=== PATIENT | female | born 1945 | race Caucasian/White ===

== ENCOUNTER 2018-10-15 10:55 | Outpatient (RCR) | payer MEDICARE, OTHER, SELFPAY ==
--- NOTE | 2018-10-15 12:39 | PT.OIE ---
Current Diagnoses Benign paroxysmal vertigo, right ear (10/15/18) Dizziness and giddiness (10/15/18) Provider Visit Care Team Role Provider Type Annie Schroeder MD Attending Provider Physician Family Provider Primary Care Provider Specialty: Family Practice Address: [address] [place] [address], [id number] Email: Physical Therapy Initial Evaluation PT-OP-A Visit Information Start: 10/15/18 12:12 Freq: Status: Active Protocol: Document 10/15/18 11:15 DCW (Rec: 10/15/18 12:38 DCW [id number]) Out-Patient Physical Therapy Visit Information Visit Information Visit Type Initial Evaluation Visit Start Time 11:15 Visit Stop Time 12:05 Total Visit Minutes 50 Visit Number 1 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 Pt reports episodes last minutes to hours, although admits that she only feels rotational vertigo for ~1 minute, but then feels lousy and off balance for the remainder of the day. Symptoms are provoked by looking and reaching up for items in stores, tipping her head back or down, or rolling in bed, especially to the right. Pt denies recent hearing changes, diplopia, dysarthria, discoordination, or decreased mentation/consciousness. Pt reports symptoms are waxing/ waning in nature. Pt denies hx of arrhythmia, head trauma, seizure, migraines, back/neck problems, CVA, panic disorders , depression, or excessive smoking or drinking. Pt does have a history of HTN, hyperlipidemia, and DM II, however they all all well controlled through medication or diet/exercise. Treatment Goals Patient/Caregiver Goals Decrease position-dependent vertigo Prior Functional Status Baseline Function- ADL's Independent Baseline Function- Mobility Independent PT-OP-C Subjective Start: 10/15/18 12:12 Freq: Status: Active Protocol: Document 10/15/18 11:15 DCW (Rec: 10/15/18 12:38 DCW [id number]) Patient Questionnaires Dizziness Handicap Inventory DHI Score 38% DHI Functional Impairment 20 to 39% Impaired (Score 20- 39) PT-OP-O Vestibular Start: 10/15/18 12:12 Freq: Status: Active Protocol: Document 10/15/18 11:15 DCW (Rec: 10/15/18 12:38 DCW [id number]) Vestibular Assessment Screening Tests Vestibular Artery Screen Negative Sharp-Iram Test Negative Auditory Tests Freedman Test Negative Rinne Test Negative Air Conduction Results Equal Visual Testing Smooth Pursuits Horizontal Negative Smooth Pursuits Vertical Negative Saccades Horizontal Negative Gaze Evoked Nystagmus With Fixation Negative Gaze Evoked Nystagmus Without Fixation Negative Heave Test Negative Thrust Head Negative Head Shake Negative Spontaneous Nystagmus Negative Positional Testing [place]-Hallpike Positive Right Negative Left Comments Vestibular Comments Complaints of dizziness and nausea with right Cecilio-Hallpike , however no noticable nystagmus, although pt did squeeze her eyes closed upon initially laying back PT-OP-Q Treatments Start: 10/15/18 12:12 Freq: Status: Active Protocol: Document 10/15/18 11:15 DCW (Rec: 10/15/18 12:38 DCW [id number]) Canalithic Repositioning BPPV Treatment Daniel Affected Canal(s) Right Posterior? PT-OP-T Assessment and Plan Start: 10/15/18 12:12 Freq: Status: Active Protocol: Document 10/15/18 11:15 DCW (Rec: 10/15/18 12:38 DCW [id number]) Physical Therapy Assessment Rehab Potential Rehabilitation Potential Excellent Evaluation Complexity Number of Personal Factors/Comorbidities 1-2 Number of Body Systems Impaired 1-2 Clinical Presentation at Evaluation Unstable Impairments Impairments Balance Vestibular Goals Three Impairment Positive R [place]-Hallpike Short Term Goal (STG) Negative Cecilio-Hallpike bilaterally STG Duration 10/29/18 Two Impairment DHI = 38% disability Short Term Goal (STG) Pt to score at <15% disability on DHI STG Duration 10/29/18 One Impairment Pt unable to roll over in bed Short Term Goal (STG) Pt to experience no vertigo in bed in any position for one consecutive week STG Duration 10/29/18 Assessment Summary Assessment During right [place]-Hallpike test , pt complained of vertigo and nausea lasting approximately 10 seconds, however no noticeable nystagmus, although pt did squeeze her eyes closed upon initially laying back. This may be consistent with diagnosis of right-sided posterior canal BPPV, canalithiasis-type, even without nystagmus, especially due to her long-standing history, she may be able to repress her nystagmus. Pt was treated with a right-sided Daniel maneuver. Pt complained of symptoms in the first and third position, which is normally indicative of a successful treatment. Pt was educated on BPPV, expectations for treatment, possible recurrence, and post-Daniel restrictions. Pt to return in ~1 week for a follow-up appointment, and intermittently afterward as indicated for treatment of BPPV. Physical Therapy Plan Frequency and Duration Frequency of Treatment 1x/Week Duration of Treatment 6 weeks Plan of Care Start Date 10/15/18 Plan of Care End Date 12/31/18 Therapeutic Interventions Therapeutic Interventions Balance Training Canalithic Repositioning Coordination Training Next Visit Focus/Plan Next Note Type Treatment Note Next Visit Plan Positional Retesting, CRM as needed
--- NOTE | 2018-10-15 12:40 | PT.OPPOC ---
Current Diagnoses Benign paroxysmal vertigo, right ear (10/15/18) Dizziness and giddiness (10/15/18) Provider Visit Care Team Role Provider Type Annie Schroeder MD Attending Provider Physician Family Provider Primary Care Provider Specialty: Family Practice Address: [address] [place] [address], [facility] Email: Plan Of Care PT-OP-T Assessment and Plan Start: 10/15/18 12:12 Freq: Status: Active Protocol: Document 10/15/18 11:15 DCW (Rec: 10/15/18 12:38 DCW [id number]) Physical Therapy Assessment Rehab Potential Rehabilitation Potential Excellent Evaluation Complexity Number of Personal Factors/Comorbidities 1-2 Number of Body Systems Impaired 1-2 Clinical Presentation at Evaluation Unstable Impairments Impairments Balance Vestibular Goals Three Impairment Positive R [place]-Hallpike Short Term Goal (STG) Negative [place]-Hallpike bilaterally STG Duration 10/29/18 Two Impairment DHI = 38% disability Short Term Goal (STG) Pt to score at <15% disability on DHI STG Duration 10/29/18 One Impairment Pt unable to roll over in bed Short Term Goal (STG) Pt to experience no vertigo in bed in any position for one consecutive week STG Duration 10/29/18 Assessment Summary Assessment During right Cecilio-Hallpike test , pt complained of vertigo and nausea lasting approximately 10 seconds, however no noticable nystagmus, although pt did squeeze her eyes closed upon initially laying back. This may be consistent with diagnosis of right-sided posterior canal BPPV, canalithiasis-type, even without nystagmus, especially due to her long-standing history, she may be able to repress her nystagmus. Pt was treated with a right-sided Daniel maneuver. Pt complained of symptoms in the first and third position, which is normally indicative of a successful treatment. Pt was educated on BPPV, expectations for treatment, possible recurrence, and post-Daniel restrictions. Pt to return in ~1 week for a follow-up appointment, and intermittently afterward as indicated for treatment of BPPV. Physical Therapy Plan Frequency and Duration Frequency of Treatment 1x/Week Duration of Treatment 6 weeks Plan of Care Start Date 10/15/18 Plan of Care End Date 12/31/18 Therapeutic Interventions Therapeutic Interventions Balance Training Canalithic Repositioning Coordination Training Next Visit Focus/Plan Next Note Type Treatment Note Next Visit Plan Positional Retesting, CRM as needed Plan of Care Dates Plan of Care Start Date 10/15/18 Plan of Care End Date 12/31/18 Please Sign and Return: I have reviewed this Plan of Care and certify that the skilled therapy services above are required to meet the patient?s needs. Physician Signature Date Printed Name and Credentials Clinical Instructor Signature Printed Name and Credentials
--- NOTE | 2018-12-28 12:14 | PT.OPDS ---
Current Diagnoses Benign paroxysmal vertigo, right ear (10/15/18) Dizziness and giddiness (10/15/18) Provider Visit Care Team Role Provider Type Annie Schroeder MD Attending Provider Physician Family Provider Primary Care Provider Specialty: Family Practice Address: [address] [place] [address], [facility] Email: Visit Number Visit Number 1 Discharge Summary PT-OP-B Current Condition Start: 10/15/18 12:12 Freq: Status: Active Protocol: Document 10/15/18 11:15 DCW (Rec: 10/15/18 12:38 DCW [id number]) Current Condition History of Current Condition Onset Date s/p 18 years Current Complaints position-dependent vertigo with constant low-level imbalance History of Current Condition Pt is a 73 year old female complaining of an 18 year history of motion-induced vertigo with a constant low- level sensation of imbalance. Pt reports episodes last minutes to hours, although admits that she only feels rotational vertigo for ~1 minute, but then feels lousy and off balance for the remainder of the day. Symptoms are provoked by looking and reaching up for items in stores, tipping her head back or down, or rolling in bed, especially to the right. Pt denies recent hearing changes, diplopia, dysarthria, discoordination, or decreased mentation/consciousness. Pt reports symptoms are waxing/ waning in nature. Pt denies hx of arrhythmia, head trauma, seizure, migraines, back/neck problems, CVA, panic disorders , depression, or excessive smoking or drinking. Pt does have a history of HTN, hyperlipidemia, and DM II, however they all all well controlled through medication or diet/exercise. Treatment Goals Patient/Caregiver Goals Decrease position-dependent vertigo Prior Functional Status Baseline Function- ADL's Independent Baseline Function- Mobility Independent PT-OP-C Subjective Start: 10/15/18 12:12 Freq: Status: Active Protocol: Document 10/15/18 11:15 DCW (Rec: 10/15/18 12:38 DCW [id number]) Patient Questionnaires Dizziness Handicap Inventory DHI Score 38% DHI Functional Impairment 20 to 39% Impaired (Score 20- 39) PT-OP-O Vestibular Start: 10/15/18 12:12 Freq: Status: Active Protocol: Document 10/15/18 11:15 DCW (Rec: 10/15/18 12:38 DCW [id number]) Vestibular Assessment Screening Tests Vestibular Artery Screen Negative Sharp-Iram Test Negative Auditory Tests Freedman Test Negative Rinne Test Negative Air Conduction Results Equal Visual Testing Smooth Pursuits Horizontal Negative Smooth Pursuits Vertical Negative Saccades Horizontal Negative Gaze Evoked Nystagmus With Fixation Negative Gaze Evoked Nystagmus Without Fixation Negative Heave Test Negative Thrust Head Negative Head Shake Negative Spontaneous Nystagmus Negative Positional Testing Cecilio-Hallpike Positive Right Negative Left Comments Vestibular Comments Complaints of dizziness and nausea with right [place]-Hallpike , however no noticeable nystagmus, although pt did squeeze her eyes closed upon initially laying back PT-OP-T Assessment and Plan Start: 10/15/18 12:12 Freq: Status: Active Protocol: Document 12/28/18 12:11 DCW (Rec: 12/28/18 12:14 DCW [id number]) Physical Therapy Assessment Assessment Summary Assessment Pt was instructed to schedule a follow-up visit following her initial evaluation, however canceled twice due to conflicts and never resecheduled. Pt has now not been seen in more than two months, and will be discharged from skilled PT at this time. Physical Therapy Plan Discharge Physical Therapy Discharge Reasons No Longer Attending PT Next Visit Focus/Plan Next Note Type Discharge Summary
== END 2019-01-19 16:34 | disposition home or self-care (01) ==
LOC: PHYS 10:55
PROVIDERS: Family Provider Family Medicine; PCP Family Medicine; Visit Provider Family Medicine
DX: R42 Dizziness and giddiness (principal)
CPT/HCPCS: 95992; 97161

== ENCOUNTER → 2020-04-20 13:23 | Outpatient (CLI) | payer MEDICARE, OTHER, SELFPAY ==
--- NOTE | 2020-04-20 | DI.MG.S_ITS ---
BILATERAL DIGITAL SCREENING MAMMOGRAM 3D/2D WITH CAD: 04/20/2020 CLINICAL: Routine screening. Comparison is made to exams dated: 03/18/2017 mammogram, 07/20/2014 mammogram, and 01/17/2014 mammogram - [facility]. There are scattered fibroglandular elements in both breasts. Current study was also evaluated with a Computer Aided Detection (CAD) system. No significant masses, calcifications, or other findings are seen in either breast. There has been no significant interval change. IMPRESSION: NEGATIVE There is no mammographic evidence of malignancy. A 1 year screening mammogram is recommended. This exam was interpreted at Station ID: [id number]. NOTE: For mammograms, a report in lay terms will be sent to the patient. Approximately 15% of breast malignancies will not be visualized mammographically. In the management of a palpable breast mass, a negative mammogram must not discourage biopsy of a clinically suspicious lesion. Electronically Signed By: Charlie camejo/irving:04/20/2020 17:22:50 letter sent: Normal Exam ACR BI-RADS Category 1: Negative 3341F
== END ==
PROVIDERS: Family Provider Family Medicine; PCP Family Medicine; Referring Provider Family Medicine; Visit Provider Family Medicine
DX: Z12.31 Encounter for screening mammogram for malignant neoplasm of breast (principal)
CPT/HCPCS: 77063; 77067

== ENCOUNTER → 2021-01-09 14:54 | Outpatient (CLI) | payer MEDICARE, OTHER, SELFPAY | PROVIDERS: Family Provider Family Medicine; PCP Family Medicine; Referring Provider Family Medicine; Visit Provider Family Medicine | DX: M85.851 Other specified disorders of bone density and structure, right thigh (principal); Z78.0 Asymptomatic menopausal state; E11.9 Type 2 diabetes mellitus without complications | CPT/HCPCS: 77080 ==

== ENCOUNTER → 2021-08-05 14:38 | Outpatient (CLI) | payer MEDICARE, OTHER, SELFPAY ==
--- NOTE | 2021-08-05 | DI.MG.S_ITS ---
BILATERAL DIGITAL SCREENING MAMMOGRAM 3D/2D WITH CAD: 08/05/2021 CLINICAL: Routine screening. Comparison is made to exams dated: 04/20/2020 mammogram, 03/18/2017 mammogram, and 01/09/2014 mammogram - [facility]. There are scattered fibroglandular elements in both breasts. Current study was also evaluated with a Computer Aided Detection (CAD) system. There is a stable benign mass in the right breast. No significant masses, calcifications, or other findings are seen in either breast. There has been no significant interval change. IMPRESSION: BENIGN There is no mammographic evidence of malignancy. A 1 year screening mammogram is recommended. This exam was interpreted at Station ID: [id number]. NOTE: For mammograms, a report in lay terms will be sent to the patient. Approximately 15% of breast malignancies will not be visualized mammographically. In the management of a palpable breast mass, a negative mammogram must not discourage biopsy of a clinically suspicious lesion. Electronically Signed By: Terrell griffith/irving:08/05/2021 15:33:46 letter sent: Normal Exam ACR BI-RADS Category 2: Benign Finding(s) 3342F
== END ==
PROVIDERS: Family Provider Family Medicine; PCP Family Medicine; Referring Provider Family Medicine; Visit Provider Family Medicine
DX: Z12.31 Encounter for screening mammogram for malignant neoplasm of breast (principal)
CPT/HCPCS: 77063; 77067

== ENCOUNTER → 2022-11-18 14:40 | Outpatient (CLI) | payer OTHER, SELFPAY ==
--- NOTE | 2022-11-18 | DI.RAD.S_ITS ---
Bone Density Report Name: ALESSIO LOUIS Age: 77 Sex: Female Ethnicity: White Date of : 1945 Indication: UNAPPROVED postmenopausal; screening for osteoporosis; Referring Provider: YELENA CHAMBERS Study: Bone densitometry was performed. Exam Date: November 18, 2022 Accession number: [id number] Bone Density: Region BMD T-score Z-score Classification AP Spine(L2, L3, L4) 1.241 1.5 4.0 Normal Femoral Neck (Left) 0.755 -0.8 1.3 Normal Total Hip (Left) 1.001 0.5 2.3 Normal Femoral Neck (Right) 0.706 -1.3 0.9 Osteopenia Total Hip (Right) 0.975 0.3 2.1 Normal Total Hip Mean 0.988 0.4 2.2 Normal World Health Organization criteria for BMD impression classify patients as: Normal (T-score at or above -1.0), Osteopenia (T-score between -1.0 and -2.5), or Osteoporosis (T-score at or below -2.5). 10-year Fracture Risk(1): Major Osteoporotic Fracture 11% Hip Fracture 2.0% Reported Risk Factors: [place] (), Neck BMD=0.706, BMI=32.3 (1) FRAX(R) Version 3.08. Fracture probability calculated for an untreated patient. Fracture probability may be lower if the patient has received treatment. Previous Exams: -- Region Exam Age BMD T-score BMD Change BMD Change Date g/cm2 vs Baseline vs Previous -- AP Spine (L2-L4) 11/18/2022 77 1.241 1.5 -0.042 (-3.3%)# -0.042 (-3.3%)# 01/09/2021 75 1.282 1.8 Total Hip(Left) 11/18/2022 77 1.001 0.5 0.006 (0.6%)# 0.006 (0.6%)# 01/09/2021 75 0.995 0.4 Total Hip(Right) 11/18/2022 77 0.975 0.3 -0.036 (-3.6%)# -0.036 (-3.6%)# 01/09/2021 75 1.011 0.6 -- *Denotes significance at 95% confidence level, LSC for AP Spine = 0.022 g/cm2, LSC for Total Hip = 0.027 g/cm2 # Denotes dissimilar scan types or analysis methods Impression: UNAPPROVED The patient has low bone mass, based on the Right Femoral Neck T-score. The patient has an estimated ten-year risk of hip fracture of 2% and an estimated ten-year risk of major fracture of 11%, based on the WHO FRAX algorithm. No significant bone loss was observed. Discussion: UNAPPROVED BONE DENSITY IS LOW AT ONE OR MORE SKELETAL SITES. This patient's lowest T-score is low at one or more skeletal sites. It meets the World Health Organization's (WHO) criteria for low bone mass (T-score between -1.0 and -2.5). The patient's 10-year risk of fracture as calculated by FRAX is less than the threshold where pharmacological therapy is recommended by the National Osteoporosis Foundation (NOF). However, all treatment decisions require clinical judgment and consideration of individual patient factors, including patient preferences, comorbidities, previous drug use, risk factors not captured in the FRAX model (e.g., frailty, falls, vitamin D deficiency, increased bone turnover, interval significant decline in bone density) and possible under or overestimation of fracture risk by FRAX. The patient should follow a healthful lifestyle (good nutrition with adequate calcium and vitamin D, and appropriate weight-bearing exercise). Follow-Up: UNAPPROVED Consider repeating this study in 2 to 3 years to reassess this patient's status, or sooner if there is some new clinical indication. Reported by: PRADEEP BENAVIDES M.D on 11/18/2022 2:20:00 PM.
== END ==
PROVIDERS: Family Provider Family Medicine; PCP Family Medicine; Referring Provider Family Medicine; Visit Provider Family Medicine
DX: Z78.0 Asymptomatic menopausal state (principal); Z13.820 Encounter for screening for osteoporosis; M85.851 Other specified disorders of bone density and structure, right thigh
CPT/HCPCS: 77080

== ENCOUNTER → 2023-04-14 16:23 | Outpatient (CLI) | payer OTHER, SELFPAY ==
--- NOTE | 2023-04-14 | DI.RAD.S_ITS ---
PROCEDURE: XR LUMBAR SPINE 2-3V INDICATIONS: Sciatica TECHNIQUE: 3 views of the lumbar spine were acquired. COMPARISON: None. FINDINGS: Bones: 5 [id number] vertebrae are present. There is 4 mm grade 1 retrolisthesis at L2-3, 3 mm grade 1 anterolisthesis at L4-5, and 4 mm grade 1 anterolisthesis at L5-S1. No vertebral body compression fractures. No suspicious bony lesions. Multilevel disc space narrowing degenerative endplate changes and multilevel facet hypertrophy are seen. Soft tissues: Overlying bowel gas pattern is normal. No suspicious soft tissue calcifications. Left pelvis adnexal clips are present. IMPRESSION: Moderate multilevel spondylosis and degenerative spondylolistheses. Approved by: Scot Mcintosh M.D. on 04/15/2023 at 11:39
--- NOTE | 2023-04-14 | DI.RAD.S_ITS ---
PROCEDURE: XR CERVICAL SPINE 2V OR 3V INDICATIONS: Neck pain TECHNIQUE: Three views of the cervical spine were acquired. COMPARISON: None. FINDINGS: Bones: No acute fractures or dislocations to the C7 level. The lateral masses of C1 appear intact on the odontoid view. No suspicious bony lesions. Multilevel disc space narrowing degenerative endplate changes are seen. There is multilevel uncovertebral joint and facet hypertrophy. 2 mm grade 1 anterolisthesis is seen at C4-5. Soft tissues: No prevertebral soft tissue swelling. IMPRESSION: Moderate multilevel spondylosis and degenerative spondylolisthesis. Approved by: Scot Mcintosh M.D. on 04/15/2023 at 11:37
== END ==
PROVIDERS: Family Provider Family Medicine; PCP Family Medicine; Referring Provider Family Medicine; Visit Provider Family Medicine
DX: M47.812 Spondylosis without myelopathy or radiculopathy, cervical region (principal); M43.12 Spondylolisthesis, cervical region; M47.26 Other spondylosis with radiculopathy, lumbar region; M43.16 Spondylolisthesis, lumbar region; M43.17 Spondylolisthesis, lumbosacral region; R42 Dizziness and giddiness; M54.2 Cervicalgia
CPT/HCPCS: 72040; 72100

== ENCOUNTER → 2023-05-21 07:55 | Outpatient (CLI) | payer OTHER, SELFPAY ==
--- NOTE | 2023-05-21 | DI.ECHO.S_ITS ---
[facility] +---------+ : : [address] [place] [address] : : : : [id number] : : : : Phone: [phone]---------+ Echocardiogram Report + + :Name: ALESSIO LOUIS Study Date: 05/21/2023 Height: 59 in : :[facility] ReadingLocation: Weight: 157 lb : : Gender: Female BSA: 1.7 m2 : :: 1945 Age: 78 yrs BP: 171/93 mmHg: :Reason For Study: Cardiac Murmur : :Ordering Physician: REYES, : :YELENA Performed By: Iris Lira : :Referring: YELENA CHAMBERS : + + Interpretation Summary The left ventricle is normal in size. Left ventricular systolic function appears normal without focal wall motion abnormalities. The ejection fraction is estimated to be 60-65%. The right ventricle is normal in size and function. Pulmonary artery pressures cannot be estimated because of the lack of a measurable TR jet velocity. The left atrial size is normal. There is no significant valvular heart disease. The aortic root is normal size. Procedure: A two-dimensional transthoracic echocardiogram with color flow and Doppler was performed. The study quality was technically adequate. There is no prior echocardiogram noted for this patient. The patient was in normal sinus rhythm during the exam. The patient had occasional PVCs during the exam. Left Ventricle: The left ventricle is normal in size. Left ventricular wall thickness is mildly increased. Left ventricular systolic function appears normal without focal wall motion abnormalities. The ejection fraction is estimated to be 60-65%. Diastolic function could not be accurately assessed due to contradictory data. Right Ventricle: The right ventricle is normal in size and function. Atria: The left atrial size is normal. Right atrial size is normal. There is no Doppler evidence for an interatrial shunt. Mitral Valve: The mitral valve leaflets appear borderline thickened, but open well. There is mild mitral annular calcification. There is no mitral valve stenosis. There is trace mitral regurgitation. Aortic Valve: The aortic valve is trileaflet. There is mild aortic valve sclerosis. There is no aortic valve stenosis. There is no aortic regurgitation. Tricuspid Valve: The tricuspid valve is normal. There is no tricuspid stenosis. There is trace tricuspid regurgitation. Pulmonary artery pressures cannot be estimated because of the lack of a measurable TR jet velocity. Pulmonic Valve: The pulmonic valve leaflets are thin and pliable; valve motion is normal. There is no pulmonic valvular stenosis. There is trace pulmonic regurgitation. There is no significant valvular heart disease. Great Vessels: The aortic root is normal size. The ascending aorta is normal in size. The pulmonary artery is normal size. The IVC is of normal diameter and collapses greater than 50% with a sniff. This suggests a low right atrial pressure of 3 mm Hg. Pericardium/ Pleura There is no pericardial effusion. There is no pleural effusion. MMode/2D Measurements & Calculations LVIDd: 3.7 cm LVOT diam: 1.7 cm LVIDs: 2.1 cm Ao root diam: 2.8 cm FS: 43.2 % asc Aorta Diam: 3.1 cm IVSd: 1.2 cm LVPWd: 0.80 cm LV sarkar. diameter/BSA (cm/m^2): 2.2 LV sys. diameter/BSA (cm/m^2): 1.3 LA A2 area: 11.8 cm2 RA long axis: 5.1 cm LA A4 area: 12.0 cm2 RA area: 13.1 cm2 LA length (vol): 4.9 cm RA vol: 28.5 ml LA vol: 24.7 ml RA : 17.1 ml/m2 LA vol index: 14.8 ml/m2 RVD1 (basal): 3.2 cm LVLs ap4: 5.5 cm LVLd ap2: 6.2 cm TAPSE_phl: 2.4 cm LVLs ap2: 5.5 cm Doppler Measurements & Calculations MV E max enzo: 89.8 cm/sec PA V2 max: 140.0 cm/sec MV A max enzo: 115.0 cm/sec PA V2 mean: 83.5 cm/sec MV E/A: 0.78 PA mean P.0 mmHg Med Peak E' Enzo: 4.8 cm/sec PA pr(Accel): 49.3 mmHg E/E' med: 18.9 Lat Peak E' Enzo: 4.0 cm/sec E/E' lat: 22.6 E/e' average: 20.7 MV dec time: 0.22 sec MV V2 mean: 72.3 cm/sec MV P1/2t-pr_phl: 67.0 msec MV mean P.4 mmHg MV V2 VTI: 32.5 cm Reading Physician:06:22 PM
== END ==
PROVIDERS: Family Provider Family Medicine; PCP Family Medicine; Referring Provider Family Medicine; Visit Provider Family Medicine
DX: I34.81 Nonrheumatic mitral (valve) annulus calcification (principal); I35.8 Other nonrheumatic aortic valve disorders; R01.1 Cardiac murmur, unspecified
CPT/HCPCS: 93306

== ENCOUNTER 2024-08-01 14:30 | Outpatient (RCR) | payer OTHER, SELFPAY ==
--- NOTE | 2024-07-22 16:45 | PT.OIE ---
Current Diagnoses Unsteadiness on feet (07/22/24) Dizziness and giddiness (07/22/24) Visit Care Team Role Provider Type Annie Schroeder MD Attending Provider Physician Family Provider Primary Care Provider Referring Provider Specialty: [facility] Address: [address] [place] [address], [facility] [place], [address] Email: [email or web address] Physical Therapy Initial Evaluation PT-OP-A Visit Information Start: 07/22/24 16:12 Freq: Status: Active Protocol: Document 07/22/24 14:30 DCW (Rec: 07/22/24 16:25 DCW [id number]) Out-Patient Physical Therapy Visit Information Visit Information Visit Type Initial Evaluation Visit Start Time 14:30 Visit Stop Time 15:15 Visit Number 1 Number of RETAIL SPECIAL EVENT ASSOCIATE Visits 0 Evaluation Information Evaluation Date 07/22/24 PT-OP-B Current Condition Start: 07/22/24 16:12 Freq: Status: Active Protocol: Document 07/22/24 14:30 DCW (Rec: 07/22/24 16:25 DCW [id number]) Current Condition History of Current Condition Onset Date 20 year history Current Complaints Unsteadiness, decreased activity tolerance, vestibular migraine History of Current Condition Pt is a 79 year old female presenting with a twenty year history of constant dizziness. Dizziness is much worse when up moving around, however is constantly present as a low- level of imbalance. Pt reports that worse periods of symptoms last from minutes to hours, and then she feels poor the remainder of the day. Pt was previously seen in the clinic five years ago with the same complaints, but responded so poorly to vestibular testing, she did not return for any follow-up appointments. Pt reports that there has been a change since that occurred, and that in January of 2023, she had the worst episode she has had since it began in 2003, recovery took days, but I never actually fully recovered. Then, in September 2023, she had an episode where she became very sweaty, with palpitations, nausea, and visual aura, and thought she was having an [place]. She was instead diagnosed with a vestibular migraine. She has since been seen by ENT and Neurology. Neuro specifically has been incredibly helpful, recommending she begin taking Riboflavin and Magnesium, as well as drinking johan. This occurred in April of this year, and she has felt better for the past four months than she has for years. Pt is now hoping to participate in PT, with the hopes of improving her balance and activity tolerance after being at a low functional level for so long due to poor balance and fear of increasing symptoms. PT-OP-C Subjective Start: 07/22/24 16:12 Freq: Status: Active Protocol: Document 07/22/24 14:30 DCW (Rec: 07/22/24 16:25 DCW [id number]) OP-PT Subjective Patient Comments Patient Comments Even if I don't get better than I am right now, I'm so much better than I was before, so I'm already pretty thrilled. Patient Reported Progress Improving PT-OP-D Balance Start: 07/22/24 16:12 Freq: Status: Active Protocol: Document 07/22/24 14:30 DCW (Rec: 07/22/24 16:30 DCW [id number]) Balance Tests Lawson Balance Test Lawson Balance Test Score 51/56 Lawson Impairment Rating 1 to 19% Impaired (Score 45-55 ) Lawson Balance Assessment Evaluation Sitting to Standing Ability Independent w/out Hands Unsupported Stance Safely- 2 minutes Sitting Unsupported, Feet on Floor Safely- 2 minutes Standing to Sitting Ability Safely, Minimal Hand Use Transfer Ability Safely, Minimal Hand Use Unsupported Stance- Eyes Closed Safely, 10 seconds Unsupported Stance- Eyes Open Independent, 1 minute Reaching Forward Standing Safely, 5 inches Pick- Up Object From Floor Independent/Safe Look Behind Shoulder - Standing Shifts Weight Well Turning 360 Degrees Turns Bilateral, < 4 secs Unsupported Stance, Alternating Feet on (I)- 8 Steps in 20 secs Stair Unsupported Tandem Stance Holds Tandem- 30 seconds Unilateral Leg Stance Lifts Leg/Unable to Hold Total Score Lawson Total Score (out of 56 points) 51 Lawson Impairment Rating 1 to 19% Impaired (Score 45-55 ) PT-OP-E Functional Tests Start: 07/22/24 16:12 Freq: Status: Active Protocol: Document 07/22/24 14:30 DCW (Rec: 07/22/24 16:30 DCW [id number]) Functional Tests Dynamic Gait Index (DGI) Score 18/24 DGI Impairment Rating 20 to <40% Impaired (Score 15- 19) PT-OP-Q Treatments Start: 07/22/24 16:12 Freq: Status: Active Protocol: Document 07/22/24 14:30 DCW (Rec: 07/22/24 16:30 DCW [id number]) Neuro Re-Education Treatment Vestibular Rehabilitation X1 Viewing Details Static target, head turns Distance From Target Arm's length Speed as tolerated Position seated VOR Retraining Details VOR Cancellation - Head and target moving together Distance From Target Arm's length Speed as tolerated Position seated PT-OP-T Assessment and Plan Start: 07/22/24 16:12 Freq: Status: Active Protocol: Document 07/22/24 14:30 DCW (Rec: 07/22/24 16:45 DCW [id number]) Physical Therapy Assessment Rehab Potential Rehabilitation Potential Fair Evaluation Complexity Number of Personal Factors/Comorbidities 3 or More Number of Body Systems Impaired 4 or More Clinical Presentation at Evaluation Unstable Impairments Impairments Activity Tolerance,Balance, Functional Activities, Functional Mobility,Vestibular ,Visual Motor Goals Three Impairment Pt moves en bloc with all turns and direction changes Chlorinator Goal (LTG) Pt to demonstrate ability to ambulate without path deviation while performing head turns over a 60 foot distance LTG Duration 10/20/24 Two Impairment Pt DGI score (18) suggests an increased risk of falls Chlorinator Goal (LTG) Pt to exhibit a decrease in falls risk by improving DGI score by at least three points to 21/24 LTG Duration 10/20/24 One Impairment Pt does not have an appropriate home exercise program Short Term Goal (STG) Pt to be independent and compliant with an appropriate HEP STG Duration 08/21/24 Assessment Summary Assessment Pt presents with signs and symptoms consistent with her referring diagnosis. 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 Pt reports significant improvement in symptoms after beginning supplements from neurologist. At this time, pt' s dynamic balance indicates an increased falls risk, with a DGI score of 18/24. Pt tends to perform any turn en block to decrease vestibular symptoms. Pt will likely benefit from skilled therapeutic intervention focusing on vestibular challenges, balance training, dynamic gait, and decreasing falls risk. Started with VOR cancellation exercise and X1 viewing for HEP, pt required very slow movements with short duration, but felt relatively okay when performing. Physical Therapy Plan Frequency and Duration Frequency of Treatment 1-2x/week Plan of Care Start Date 07/22/24 Plan of Care End Date 10/20/24 Next Visit Focus/Plan Next Note Type Treatment Note Next Visit Plan X2, Saccades, balance training
--- NOTE | 2024-07-22 16:46 | PT.OPPOC ---
Physical, Occupational & Speech Therapy At [facility] Current Diagnoses Unsteadiness on feet (07/22/24) Dizziness and giddiness (07/22/24) Visit Care Team Role Provider Type Annie Schroeder MD Attending Provider Physician Family Provider Primary Care Provider Referring Provider Specialty: Family Practice Address: [address] [place] [address], [facility] [place], [facility] Email: [email or web address] Plan Of Care PT-OP-B Current Condition Start: 07/22/24 16:12 Freq: Status: Active Protocol: Document 07/22/24 14:30 DCW (Rec: 07/22/24 16:25 DCW [id number]) Current Condition History of Current Condition Onset Date 20 year history Current Complaints Unsteadiness, decreased activity tolerance, vestibular migraine History of Current Condition Pt is a 79 year old female presenting with a twenty year history of constant dizziness. Dizziness is much worse when up moving around, however is constantly present as a low- level of imbalance. Pt reports that worse periods of symptoms last from minutes to hours, and then she feels poor the remainder of the day. Pt was previously seen in the clinic five years ago with the same complaints, but responded so poorly to vestibular testing, she did not return for any follow-up appointments. Pt reports that there has been a change since that occurred, and that in January of 2023, she had the worst episode she has had since it began in 2003, recovery took days, but I never actually fully recovered. Then, in September 2023, she had an episode where she became very sweaty, with palpitations, nausea, and visual aura, and thought she was having an [place]. She was instead diagnosed with a vestibular migraine. She has since been seen by ENT and Neurology. Neuro specifically has been incredibly helpful, recommending she begin taking Riboflavin and Magnesium, as well as drinking johan. This occurred in April of this year, and she has felt better for the past four months than she has for years. Pt is now hoping to participate in PT, with the hopes of improving her balance and activity tolerance after being at a low functional level for so long due to poor balance and fear of increasing symptoms. PT-OP-T Assessment and Plan Start: 07/22/24 16:12 Freq: Status: Active Protocol: Document 07/22/24 14:30 DCW (Rec: 07/22/24 16:45 DCW [id number]) Physical Therapy Assessment Rehab Potential Rehabilitation Potential Fair Evaluation Complexity Number of Personal Factors/Comorbidities 3 or More Number of Body Systems Impaired 4 or More Clinical Presentation at Evaluation Unstable Impairments Impairments Activity Tolerance,Balance, Functional Activities, Functional Mobility,Vestibular ,Visual Motor Goals Three Impairment Pt moves en bloc with all turns and direction changes Carton Catcher Goal (LTG) Pt to demonstrate ability to ambulate without path deviation while performing head turns over a 60 foot distance LTG Duration 10/20/24 Two Impairment Pt DGI score () suggests an increased risk of falls Carton Catcher Goal (LTG) Pt to exhibit a decrease in falls risk by improving DGI score by at least three points to LTG Duration 10/20/24 One Impairment Pt does not have an appropriate home exercise program Short Term Goal (STG) Pt to be independent and compliant with an appropriate HEP STG Duration 08/21/24 Assessment Summary Assessment Pt presents with signs and symptoms consistent with her referring diagnosis. 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 Pt reports significant improvement in symptoms after beginning supplements from neurologist. At this time, pt' s dynamic balance indicates an increased falls risk, with a DGI score of 18/24. Pt tends to perform any turn en block to decrease vestibular symptoms. Pt will likely benefit from skilled therapeutic intervention focusing on vestibular challenges, balance training, dynamic gait, and decreasing falls risk. Started with VOR cancellation exercise and X1 viewing for HEP, pt required very slow movements with short duration, but felt relatively okay when performing. Physical Therapy Plan Frequency and Duration Frequency of Treatment 1-2x/week Plan of Care Start Date 07/22/24 Plan of Care End Date 10/20/24 Next Visit Focus/Plan Next Note Type Treatment Note Next Visit Plan X2, Saccades, balance training Plan of Care Dates Plan of Care Start Date 07/22/24 Plan of Care End Date 10/20/24 Electronically Signed by: Parrish Coughlin, PT 07/22/24 0938 If you are in agreement with this Plan of Care, please return a signed and dated copy. I have reviewed this Plan of Care and certify that the skilled therapy services above are required to meet the patient?s needs. Physician Signature Date Printed Name and Credentials Clinical Instructor Signature Printed Name and Credentials
--- NOTE | 2024-07-25 14:59 | PT.OTN ---
Current Diagnoses Unsteadiness on feet (07/25/24) Dizziness and giddiness (07/25/24) Physical Therapy Treatment Note PT-OP-A Visit Information Start: 07/22/24 16:12 Freq: Status: Active Protocol: Document 07/25/24 14:30 DCW (Rec: 07/25/24 14:59 DCW [id number]) Out-Patient Physical Therapy Visit Information Visit Information Visit Type Treatment Note Visit Start Time 14:30 Visit Stop Time 14:57 Visit Number 2 Number of SHEET ROCK INSTALLER Visits 0 Evaluation Information Evaluation Date 07/22/24 PT-OP-B Current Condition Start: 07/22/24 16:12 Freq: Status: Active Protocol: Document 07/22/24 14:30 DCW (Rec: 07/22/24 16:25 DCW [id number]) Current Condition History of Current Condition Onset Date 20 year history Current Complaints Unsteadiness, decreased activity tolerance, vestibular migraine History of Current Condition Pt is a 79 year old female presenting with a twenty year history of constant dizziness. Dizziness is much worse when up moving around, however is constantly present as a low- level of imbalance. Pt reports that worse periods of symptoms last from minutes to hours, and then she feels poor the remainder of the day. Pt was previously seen in the clinic five years ago with the same complaints, but responded so poorly to vestibular testing, she did not return for any follow-up appointments. Pt reports that there has been a change since that occurred, and that in January of 2023, she had the worst episode she has had since it began in 2003, recovery took days, but I never actually fully recovered. Then, in September 2023, she had an episode where she became very sweaty, with palpitations, nausea, and visual aura, and thought she was having an [place]. She was instead diagnosed with a vestibular migraine. She has since been seen by ENT and Neurology. Neuro specifically has been incredibly helpful, recommending she begin taking Riboflavin and Magnesium, as well as drinking johan. This occurred in April of this year, and she has felt better for the past four months than she has for years. Pt is now hoping to participate in PT, with the hopes of improving her balance and activity tolerance after being at a low functional level for so long due to poor balance and fear of increasing symptoms. PT-OP-C Subjective Start: 07/22/24 16:12 Freq: Status: Active Protocol: Document 07/25/24 14:30 DCW (Rec: 07/25/24 14:59 DCW [id number]) OP-PT Subjective Patient Comments Patient Comments Pt reports she got a chance to practice her HEP, they're going prety well, but she is not able to tolerate 30 seconds yet. Notes her vertical X1 got a little more symptomatic this morning, but she admits she was rushing through it. PT-OP-D Balance Start: 07/22/24 16:12 Freq: Status: Active Protocol: Document 07/22/24 14:30 DCW (Rec: 07/22/24 16:30 DCW [id number]) Balance Tests Lawson Balance Test Lawson Balance Test Score 51/56 Lawson Impairment Rating 1 to 19% Impaired (Score 45-55 ) Lawson Balance Assessment Evaluation Sitting to Standing Ability Independent w/out Hands Unsupported Stance Safely- 2 minutes Sitting Unsupported, Feet on Floor Safely- 2 minutes Standing to Sitting Ability Safely, Minimal Hand Use Transfer Ability Safely, Minimal Hand Use Unsupported Stance- Eyes Closed Safely, 10 seconds Unsupported Stance- Eyes Open Independent, 1 minute Reaching Forward Standing Safely, 5 inches Pick- Up Object From Floor Independent/Safe Look Behind Shoulder - Standing Shifts Weight Well Turning 360 Degrees Turns Bilateral, < 4 secs Unsupported Stance, Alternating Feet on (I)- 8 Steps in 20 secs Stair Unsupported Tandem Stance Holds Tandem- 30 seconds Unilateral Leg Stance Lifts Leg/Unable to Hold Total Score Lawson Total Score (out of 56 points) 51 Lawson Impairment Rating 1 to 19% Impaired (Score 45-55 ) PT-OP-E Functional Tests Start: 07/22/24 16:12 Freq: Status: Active Protocol: Document 07/22/24 14:30 DCW (Rec: 07/22/24 16:30 DCW [id number]) Functional Tests Dynamic Gait Index (DGI) Score 1824 DGI Impairment Rating 20 to <40% Impaired (Score 15- 19) PT-OP-Q Treatments Start: 07/22/24 16:12 Freq: Status: Active Protocol: Document 07/25/24 14:30 DCW (Rec: 07/25/24 14:59 DCW [id number]) Neuro Re-Education Treatment Vestibular Rehabilitation Corrective Saccades Details Eyes, then head Distance From Target Arm's length Speed as tolerated Position seated X2 Viewing Details Target and head moving in opposite directions Distance From Target Arm's length Speed as tolerated Position seated X1 Viewing Details Static target, head turns Distance From Target Arm's length Speed as tolerated Position seated VOR Retraining Details VOR Cancellation - Head and target moving together Distance From Target Arm's length Speed as tolerated Position seated PT-OP-T Assessment and Plan Start: 07/22/24 16:12 Freq: Status: Active Protocol: Document 07/25/24 14:30 DCW (Rec: 07/25/24 14:59 DCW [id number]) Physical Therapy Assessment Impairments Impairments Activity Tolerance,Balance, Functional Activities, Functional Mobility,Vestibular ,Visual Motor Goals Three Impairment Pt moves en bloc with all turns and direction changes Nursing Home Goal (LTG) Pt to demonstrate ability to ambulate without path deviation while performing head turns over a 60 foot distance LTG Duration 10/20/24 Two Impairment Pt DGI score () suggests an increased risk of falls Nursing Home Goal (LTG) Pt to exhibit a decrease in falls risk by improving DGI score by at least three points to LTG Duration 10/20/24 One Impairment Pt does not have an appropriate home exercise program Short Term Goal (STG) Pt to be independent and compliant with an appropriate HEP STG Duration 08/21/24 Assessment Summary Assessment Reviewed HEP, added X2 and saccades to exercises. Pt tolerated fairly well, requires slow movements over short duration. Because pt is so sensitive to movement, shortened treatment session to not overdo activity. Recommend pt practice at home, return in one week for follow -up. Physical Therapy Plan Frequency and Duration Frequency of Treatment 1-2x/week Plan of Care Start Date 07/22/24 Plan of Care End Date 10/20/24 Next Visit Focus/Plan Next Note Type Treatment Note Next Visit Plan X2, Saccades, balance training
--- NOTE | 2024-08-01 15:07 | PT.OTN ---
Current Diagnoses Unsteadiness on feet (08/01/24) Dizziness and giddiness (08/01/24) Physical Therapy Treatment Note PT-OP-A Visit Information Start: 07/22/24 16:12 Freq: Status: Active Protocol: Document 08/01/24 14:30 DCW (Rec: 08/01/24 15:07 DCW [id number]) Out-Patient Physical Therapy Visit Information Visit Information Visit Type Treatment Note Visit Start Time 14:30 Visit Stop Time 15:02 Visit Number 3 Number of HOME AIDE Visits 0 Evaluation Information Evaluation Date 07/22/24 PT-OP-B Current Condition Start: 07/22/24 16:12 Freq: Status: Active Protocol: Document 07/22/24 14:30 DCW (Rec: 07/22/24 16:25 DCW [id number]) Current Condition History of Current Condition Onset Date 20 year history Current Complaints Unsteadiness, decreased activity tolerance, vestibular migraine History of Current Condition Pt is a 79 year old female presenting with a twenty year history of constant dizziness. Dizziness is much worse when up moving around, however is constantly present as a low- level of imbalance. Pt reports that worse periods of symptoms last from minutes to hours, and then she feels poor the remainder of the day. Pt was previously seen in the clinic five years ago with the same complaints, but responded so poorly to vestibular testing, she did not return for any follow-up appointments. Pt reports that there has been a change since that occurred, and that in January of 2023, she had the worst episode she has had since it began in 2003, recovery took days, but I never actually fully recovered. Then, in September 2023, she had an episode where she became very sweaty, with palpitations, nausea, and visual aura, and thought she was having an [place]. She was instead diagnosed with a vestibular migraine. She has since been seen by ENT and Neurology. Neuro specifically has been incredibly helpful, recommending she begin taking Riboflavin and Magnesium, as well as drinking johan. This occurred in April of this year, and she has felt better for the past four months than she has for years. Pt is now hoping to participate in PT, with the hopes of improving her balance and activity tolerance after being at a low functional level for so long due to poor balance and fear of increasing symptoms. PT-OP-C Subjective Start: 07/22/24 16:12 Freq: Status: Active Protocol: Document 08/01/24 14:30 DCW (Rec: 08/01/24 15:07 DCW [id number]) OP-PT Subjective Patient Comments Patient Comments Pt feeling pretty good, actually. Notes her HEP is going pretty well, does frequently have to recallibrate during X2 viewing. PT-OP-D Balance Start: 07/22/24 16:12 Freq: Status: Active Protocol: Document 07/22/24 14:30 DCW (Rec: 07/22/24 16:30 DCW [id number]) Balance Tests Lawson Balance Test Lawson Balance Test Score 51/56 Lawson Impairment Rating 1 to 19% Impaired (Score 45-55 ) Lawson Balance Assessment Evaluation Sitting to Standing Ability Independent w/out Hands Unsupported Stance Safely- 2 minutes Sitting Unsupported, Feet on Floor Safely- 2 minutes Standing to Sitting Ability Safely, Minimal Hand Use Transfer Ability Safely, Minimal Hand Use Unsupported Stance- Eyes Closed Safely, 10 seconds Unsupported Stance- Eyes Open Independent, 1 minute Reaching Forward Standing Safely, 5 inches Pick- Up Object From Floor Independent/Safe Look Behind Shoulder - Standing Shifts Weight Well Turning 360 Degrees Turns Bilateral, < 4 secs Unsupported Stance, Alternating Feet on (I)- 8 Steps in 20 secs Stair Unsupported Tandem Stance Holds Tandem- 30 seconds Unilateral Leg Stance Lifts Leg/Unable to Hold Total Score Lawson Total Score (out of 56 points) 51 Lawson Impairment Rating 1 to 19% Impaired (Score 45-55 ) PT-OP-E Functional Tests Start: 07/22/24 16:12 Freq: Status: Active Protocol: Document 07/22/24 14:30 DCW (Rec: 07/22/24 16:30 DCW [id number]) Functional Tests Dynamic Gait Index (DGI) Score 1824 DGI Impairment Rating 20 to <40% Impaired (Score 15- 19) PT-OP-Q Treatments Start: 07/22/24 16:12 Freq: Status: Active Protocol: Document 08/01/24 14:30 DCW (Rec: 08/01/24 15:07 DCW [id number]) Neuro Re-Education Treatment Vestibular Rehabilitation Laser Details VOR (wall, visual conflict board), Signature, Maze Disco Ball Details Disco Ball Comments I really don't like that. PT-OP-T Assessment and Plan Start: 07/22/24 16:12 Freq: Status: Active Protocol: Document 08/01/24 14:30 DCW (Rec: 08/01/24 15:07 DCW [id number]) Physical Therapy Assessment Assessment Summary Assessment Pt feeling much better overall , very happy with current progression. Did discuss today ways to increase difficulty of POC as needed, including a busier background or standing/ NBOS/walking. Due to slow progression of pt's symptoms, therapist and patient are in agreement that she would do well to work on independent HEP, and follow-up in one month to assess progress. Pt very happy with this plan. Physical Therapy Plan Frequency and Duration Frequency of Treatment 1-2x/week Plan of Care Start Date 07/22/24 Plan of Care End Date 10/20/24 Next Visit Focus/Plan Next Note Type Treatment Note Next Visit Plan X2, Saccades, balance training
--- NOTE | 2024-10-25 11:23 | PT.OPDS ---
Current Diagnoses Unsteadiness on feet (08/01/24) Dizziness and giddiness (08/01/24) Visit Care Team Role Provider Type Annie Schroeder MD Attending Provider Physician Family Provider Primary Care Provider Referring Provider Specialty: [facility] Practice Address: [address] [place] [address], [facility] [place], [address] Email: [email or web address] Visit Number Visit Number 3 Discharge Summary PT-OP-B Current Condition Start: 07/22/24 16:12 Freq: Status: Active Protocol: Document 07/22/24 14:30 DCW (Rec: 07/22/24 16:25 DCW [id number]) Current Condition History of Current Condition Onset Date 20 year history Current Complaints Unsteadiness, decreased activity tolerance, vestibular migraine History of Current Condition Pt is a 79 year old female presenting with a twenty year history of constant dizziness. Dizziness is much worse when up moving around, however is constantly present as a low- level of imbalance. Pt reports that worse periods of symptoms last from minutes to hours, and then she feels poor the remainder of the day. Pt was previously seen in the clinic five years ago with the same complaints, but responded so poorly to vestibular testing, she did not return for any follow-up appointments. Pt reports that there has been a change since that occurred, and that in January of 2023, she had the worst episode she has had since it began in 2003, recovery took days, but I never actually fully recovered. Then, in September 2023, she had an episode where she became very sweaty, with palpitations, nausea, and visual aura, and thought she was having an ND. She was instead diagnosed with a vestibular migraine. She has since been seen by ENT and Neurology. Neuro specifically has been incredibly helpful, recommending she begin taking Riboflavin and Magnesium, as well as drinking johan. This occurred in April of this year, and she has felt better for the past four months than she has for years. Pt is now hoping to participate in PT, with the hopes of improving her balance and activity tolerance after being at a low functional level for so long due to poor balance and fear of increasing symptoms. PT-OP-C Subjective Start: 07/22/24 16:12 Freq: Status: Active Protocol: Document 08/01/24 14:30 DCW (Rec: 08/01/24 15:07 DCW [id number]) OP-PT Subjective Patient Comments Patient Comments Pt feeling pretty good, actually. Notes her HEP is going pretty well, does frequently have to recallibrate during X2 viewing. PT-OP-D Balance Start: 07/22/24 16:12 Freq: Status: Active Protocol: Document 07/22/24 14:30 DCW (Rec: 07/22/24 16:30 DCW [id number]) Balance Tests Lawson Balance Test Lawson Balance Test Score 51/56 Lawson Impairment Rating 1 to 19% Impaired (Score 45-55 ) Lawson Balance Assessment Evaluation Sitting to Standing Ability Independent w/out Hands Unsupported Stance Safely- 2 minutes Sitting Unsupported, Feet on Floor Safely- 2 minutes Standing to Sitting Ability Safely, Minimal Hand Use Transfer Ability Safely, Minimal Hand Use Unsupported Stance- Eyes Closed Safely, 10 seconds Unsupported Stance- Eyes Open Independent, 1 minute Reaching Forward Standing Safely, 5 inches Pick- Up Object From Floor Independent/Safe Look Behind Shoulder - Standing Shifts Weight Well Turning 360 Degrees Turns Bilateral, < 4 secs Unsupported Stance, Alternating Feet on (I)- 8 Steps in 20 secs Stair Unsupported Tandem Stance Holds Tandem- 30 seconds Unilateral Leg Stance Lifts Leg/Unable to Hold Total Score Lawson Total Score (out of 56 points) 51 Lawson Impairment Rating 1 to 19% Impaired (Score 45-55 ) PT-OP-E Functional Tests Start: 07/22/24 16:12 Freq: Status: Active Protocol: Document 07/22/24 14:30 DCW (Rec: 07/22/24 16:30 DCW [id number]) Functional Tests Dynamic Gait Index (DGI) Score 18 DGI Impairment Rating 20 to <40% Impaired (Score 15- 19) PT-OP-T Assessment and Plan Start: 07/22/24 16:12 Freq: Status: Active Protocol: Document 10/25/24 11:21 DCW (Rec: 10/25/24 11:23 DCW [id number]) Physical Therapy Assessment Assessment Summary Assessment Pt canceled last appointment, has not been seen in more than two months, and the POC has . Pt will require a new referring to return to skilled PT. Pt will be discharged at this time. Physical Therapy Plan Discharge Physical Therapy Discharge Reasons No Longer Attending PT
== END 2024-11-03 09:32 | disposition home or self-care (01) ==
LOC: PHYS 14:30
PROVIDERS: Family Provider Family Medicine; PCP Family Medicine; Referring Provider Family Medicine; Visit Provider Family Medicine
DX: R42 Dizziness and giddiness (principal); R26.81 Unsteadiness on feet
CPT/HCPCS: 97112; 97163

== ENCOUNTER → 2025-01-26 13:29 | Outpatient (CLI) | payer OTHER, SELFPAY ==
--- NOTE | 2025-01-26 13:30 | DI.US.S_ITS ---
PROCEDURE: US PELVIC COMPLETE INDICATIONS: ABNORMAL VAGINAL BLEEDING TECHNIQUE: Real-time scanning was performed of the pelvic organs, with image documentation. Additional endovaginal scanning was necessary due to incomplete visualization of the adnexal and endometrial structures by transabdominal scanning. COMPARISON: None. FINDINGS: Uterus: Uterus is anteverted and normal in size at 5.3 x 4.5 x 2.9 cm. The myometrium is heterogeneous. The endometrium measures 2.7 mm combined thickness. Moderate to large amount of endometrial fluid with nodularity of the internal waters. For example at the fundus measuring 8 x 7 mm, lower uterine segment measuring 6 x 5 x 5 mm and left posterior measuring 20 x 24 x 9 mm. Ovaries: Not seen. No adnexal masses. Other: No pathologic free abdominal or pelvic fluid. IMPRESSION: Significant fluid within the endometrium with multiple nodules/polyps along the waters, largest measuring up to 24 mm. Malignancy is in the differential. Recommend gynecology consultation. The ovaries are not seen. We strive to produce accurate, complete, and clear reports of imaging services. To assist us in improving patient care, this report was composed using standard report templates and voice recognition software. Therefore, it may contain abnormal punctuation, insertions and/or omissions. Occasional wrong-word or sound-alike substitutions may occur. Though we review the report and make efforts to correct it, we do recommend that the report be read carefully in proper context to recognize any text inaccuracies. Dictated by: Eamon Jin M.D. on 01/27/2025 at 11:53 Approved by: Eamon Jin M.D. on 01/27/2025 at 12:01
== END ==
PROVIDERS: Family Provider Family Medicine; PCP Family Medicine; Referring Provider Family Medicine; Visit Provider Family Medicine
DX: N93.9 Abnormal uterine and vaginal bleeding, unspecified (principal); N84.0 Polyp of corpus uteri
CPT/HCPCS: 76830; 76856

== ENCOUNTER 2025-03-30 08:22 | Day surgery (SDC) | payer OTHER, SELFPAY ==
[2025-03-30] VITALS (11 sets, daily range): BP systolic 126–152; BP diastolic 63–79; PULSE 72–89; RESP 13–20; TEMP 36.2–37.2; O2SAT 95–100; BMI 30.8
--- NOTE | 2025-03-30 | PATH_ITS ---
[facility] Accession Number: [id number] No. of containers..01 Tissue . 01 Material submitted: . endometrium - UTERINE CURETTINGS . 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 Background with small fragments of benign polyp. MRV 04/10/2025 1529 Local . 01 Comment: This case was also reviewed by Dr. Reanna Nugent (Julie), who agrees with the interpretation. . 01 Electronically signed: . Mora Burroughs MD, Pathologist NPI- [id number] . 01 Gross description: . UTERINE CURETTINGS: Received in formalin are minute fragments of mucoid and hemorrhagic material measuring 3.0 x 3.0 x 0.3 cm in aggregate. Submitted in toto in 1 cassette. /JACQUELYN 04/10/2025 1340 Local . 01 Pathologist provided ICD-10: N95.0 . 01 CPT . 292423 Specimen Comment: A courtesy copy of this report has been sent to [facility] Pathology Performed at: [address] [address], [place], [place] [id number] MD Terrell Olvera MD Phone: [phone]
[2025-03-30] MEDS: ACETAMINOPHEN IV 1,000 MG/100 ML VIAL 400 MG IV (08:58)
[2025-03-30] MEDS: FAMOTIDINE 20 MG/2 ML VIAL IV (08:59)
[2025-03-30] MEDS: LACTATED RINGERS 1,000 ML 42 ML IV (08:59)
--- NOTE | 2025-03-30 09:15 | PM.GYNHP.1 ---
History of Present Illness History of Present Illness Narrative: Mariah Crum is a 79 year old female with postmenopausal bleeding, admitted for hysteroscopy with D&C. She reports a small amount of pink-tinged discharge, but no heavy bleeding. [facility] Medical History (Updated 02/13/25 @ 14:26 by Wendy Wiley DO) History of PID Hyperlipidemia Hypertension Vestibular migraine Type 2 diabetes mellitus Surgical History (Updated 02/13/25 @ 14:25 by Wendy Wiley DO) History of tonsillectomy History of laparoscopy History of section History of cataract surgery History of carpal tunnel release of both wrists Social History household members: spouse Smoking Status: Never smoker alcohol intake: never Meds Home Medications and Allergies Home Medications ?Medication ?Instructions ?Recorded ?Confirmed ?Type amlodipine 5 mg tablet (Norvasc) 5 mg PO BID ##0 01/27/17 03/30/25 History lisinopril 20 mg tablet 40 mg PO BID ##0 01/27/17 03/30/25 History metformin 500 mg tablet,extended 1,000 mg PO BID ##0 01/27/17 03/30/25 History release 24 hr (Glucophage XR) atorvastatin 10 mg tablet 5 mg PO ONCE PM 02/13/25 03/30/25 History blood sugar diagnostic (OneTouch #10 ea 02/13/25 03/30/25 History Verio test strips) Allergies Allergy/AdvReac Type Severity Reaction Status Date / Time cats Allergy Severe Difficulty Uncoded 03/30/25 08:39 Breathing dogs Allergy Severe Difficulty Uncoded 03/30/25 08:39 Breathing NKDA Allergy Uncoded 03/30/25 08:39 Review of Systems Review of Systems ROS: Yes All systems reviewed with the patient and are negative except as otherwise documented Exam Vital Signs (past 8 hours): - 03/30/25 08:42 Temperature 99.0 F Pulse Rate 89 Respiratory Rate 16 Blood Pressure 152/79 H Pulse Oximetry 98 Oxygen Delivery Method Room Air Oxygen Delivery Method Room Air Const General: healthy appearing, comfortable and No acute distress Resp Effort & Inspection: normal respiratory effort and able to speak in complete sentences Back/Spine/Pelvis Back: normal to inspection Skin General: no rashes or lesions noted Neuro Cognition: normal cognition Speech: speech normal Extrem General: normal to inspection Psych Mood: congruent mood Affect: normal affect Attitude: cooperative Objective Imaging US - abdomen: Radiologist's impression: FINDINGS: Uterus: Uterus is anteverted and normal in size at 5.3 x 4.5 x 2.9 cm. The myometrium is heterogeneous. The endometrium measures 2.7 mm combined thickness. Moderate to large amount of endometrial fluid with nodularity of the internal waters. For example at the fundus measuring 8 x 7 mm, lower uterine segment measuring 6 x 5 x 5 mm and left posterior measuring 20 x 24 x 9 mm. Ovaries: Not seen. No adnexal masses. Other: No pathologic free abdominal or pelvic fluid. IMPRESSION: Significant fluid within the endometrium with multiple nodules/polyps along the waters, largest measuring up to 24 mm. Malignancy is in the differential. Recommend gynecology consultation. The ovaries are not seen. We strive to produce accurate, complete, and clear reports of imaging services. To assist us in improving patient care, this report was composed using standard report templates and voice recognition software. Therefore, it may contain abnormal punctuation, insertions and/or omissions. Occasional wrong-word or sound-alike substitutions may occur. Though we review the report and make efforts to correct it, we do recommend that the report be read carefully in proper context to recognize any text inaccuracies. Dictated by: Eamon Jin M.D. on 01/27/2025 at 11:53 Approved by: Eamon Jin M.D. on 01/27/2025 at 12:01 Labs Labs: Laboratory Results - last 24 hr 03/30/25 08:51 POC Whole Bld Glucose 137 H Assessment & Plan Assessment and plan (1) Postmenopausal bleeding: Status: Acute Assessment & Plan narrative: 79yo F with postmenopausal bleeding admitted for hysteroscopy with D&C. We reviewed the surgical consent today, discussing risk/benefit of the procedure. Postop expectations reviewed as well. All her questions were answered to her satisfaction. -no preop abx indicated; VTE risk low -plan for same day procedure Surgery consent We discussed the risks/benefits/alternatives to the proposed procedure, to include but not limited to: -risk of bleeding, requiring medications, blood products, or other procedures as indicated -risk of infection, requiring prolonged hospital stay or other procedures -risk of injury to other structures, including bowel, bladder, blood vessels, nerves, etc. which may also require additional procedures -risk of adverse reaction to anesthesia or medications -risk of venous thromboembolism and associated sequelae -risk of rare complications such as cardiac arrest, or extremely rarely, Patient is aware of the risks, and desires to proceed with planned surgical procedure. Time-Based Coding :: [TOTAL MINUTES] spent with patient and on the chart (including review of chart, obtaining history, exam, reviewing outside data, placing orders, documenting exam and treatment plan, and counseling patient) on [DATE].
--- NOTE | 2025-03-30 09:58 | SUR.OPER ---
Lithotomy on padded OR bed, head on pillow, arms secured on padded arm boards at <90 degrees abduction, left wrist supported with gel pad. Legs secured in padded yellow fins stirrups.
--- NOTE | 2025-03-30 10:24 | P.OP_ITS ---
Operative Date/Time/Diagnoses Date of procedure: 03/30/25 Time of procedure: 10:00 Pre-op diagnosis: Postmenopausal bleeding Post-op diagnosis: same Procedure & Clinicians Procedure: Hysteroscopy Dilation and curettage Same procedure(s) as scheduled: Yes Indications: 79yo F with postmenopausal bleeding and abnormal ultrasound findings, counseled and consented for the above procedures. Surgeon: Wendy Wiley Click Yes if Unassisted: Yes Anesthesia Type: General Operative Notes Findings: Cauliflower-like growth with vascularity at the fundus and left cornua. Polypoid tissue in the mid-portion of the uterus. No discrete masses noted. Specimen(s): other (endometrial curettings) Applied: none Estimated Blood Loss (mL): 5 Blood products transfused: none Procedure in detail: The risks, benefits, indications and alternatives of the procedure were reviewed with the patient and informed consent was obtained. The pt was taken to the operating room where general anesthesia with LMA was obtained without difficulty. The pt was then placed in the low lithotomy position using gel- padded [place] stirrups. Sequential compression devices were placed bilaterally for VTE prophylaxis. The pt was then prepped and draped in the sterile fashion. A sterile speculum was placed in the patient?s vagina and the cervix was visualized. A single tooth tenaculum was used to grasp the anterior lip of the cervix. The cervix was then gently, dilated to a size 8 Hegar dilator. The operative hysteroscope was first primed and pressure set. The operative hysteroscope was then advanced through the endocervical canal under direct visualization. The uterus was distended with warm saline, and notable for the above findings. The Myosure Reach was then inserted into the operative hysteroscope. Global endometrial sampling was then performed, and the polypoid tissue was resected. The operative hysteroscope was then removed under direct visualization. Tissue obtained was sent to pathology for review. The single tooth tenaculum was removed from the anterior lip of the cervix. The tenaculum site was noted to be hemostatic after direct pressure was applied. All instruments were then removed from the patient?s vagina. Hysteroscopic fluid deficit was 160cc of normal saline. The patient tolerated the procedure well. At the completion of the case the sponge and needle counts were correct x 2. The patient was taken to the PACU in stable condition. Complications: none Post-operative Condition: stable Disposition: same day surgery Plan for aftercare: Discharge to home once patient is meeting all discharge criteria.
[2025-03-30] MEDS: OXYCODONE IR 5 MG TABLET PO (10:41)
== END 2025-03-30 12:20 | disposition home or self-care (01) ==
PROVIDERS: PCP Family Medicine; Referring Provider Family Medicine; Visit Provider Student in an Organized Health Care Education/Training Program
PROC: 0UDB8ZZ Extraction of Endometrium, Via Natural or Artificial Opening Endoscopic (ICD-10-PCS; CPT 58558; principal; 2025-03-30 09:45)
DX: N95.0 Postmenopausal bleeding (principal); N85.02 Endometrial intraepithelial neoplasia [EIN]
CPT/HCPCS: 58558; 82962; J0131; J2405; J2704; J3010

== ENCOUNTER 2025-06-08 06:25 | Day surgery (SDC) | payer OTHER, SELFPAY ==
[2025-06-05 13:57] VITALS: BMI 32.8
[2025-06-08] VITALS (13 sets, daily range): BP systolic 119–138; BP diastolic 56–74; PULSE 67–93; RESP 14–16; TEMP 35.9–37; O2SAT 93–99; BMI 32.8; BMI 33.0
--- NOTE | 2025-06-08 | PATH_ITS ---
[facility] Accession Number: [id number] No. of containers..01 Tissue . 01 Material submitted: . uterus - CERVIX,UTERUS,LEFT FALLOPIAN TUBE, LEFT OVARY . 01 Diagnosis: CERVIX, UTERUS, LEFT FALLOPIAN TUBE, AND LEFT OVARY, ROBOTIC ASSISTED TOTAL LAPAROSCOPIC HYSTERCTOMY AND LEFT SALPINGO-OOPHORECTOMY (WEIGHT 49 GRAMS): Carcinoma of the endometrium. Please see case summary. . CASE SUMMARY Specimen Procedure: Total laparoscopic hysterectomy and left salpingo-oophorectomy. Specimen integrity: Intact. . Tumor Tumor size: 1.8 cm at the left cornu across the anterior and posterior uterine waters; invades 3 mm into a myometrium that measures 7 mm thickness. 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 . Myometrial invasion: Present, less than 50% of myometrium thickness. Tumor extends 0.3 cm into a myometrium that is 0.7 cm in depth (anterior wall) and 0.3 cm into a myometrium that is 0.8 cm in depth (posterior wall). . Uterine serosal involvement: Not identified. Cervical involvement: Not identified. Lower uterine segment involvement: Present, anterior lower uterine segment, marito-invasive. . Peritoneal: Not submitted. Lymphatic and / or vascular invasion: Not identified. . Margins Margin status: Negative for tumor. All margins negative for carcinoma. . Regional lymph nodes Regional lymph node status: Not applicable (no regional lymph nodes submitted or found). Distant metastasis: Not applicable. . Additional findings: left fallopian tube with a 14x4x4 mm intra-luminal device; myometrium with a 9 mm leiomyoma; left fallopian tube with no significant histomorphologic abnormality; left ovary with benign inclusions cysts; cervix / endocervix with benign squamous metaplasia. . . pTNM classification (AJCC 8th Edition): pT1a pN not assigned (no nodes submitted or found) pM not applicable - pM cannot be determined from sumitted specimen. [facility] 06/19/2025 1555 Local . 01 Comment: This case is also reviewed by Dr. Reanna Nugent (Julie), who agrees with the interpretation. . Dr. Mora Burroughs discussed results with Alisson Farr R.N., of Dr. Wendy Wiley' care team, on 06/19/2025 at approximately 3:11 p.m. . 01 Electronically signed: . Mora Burroughs MD, Pathologist NPI- [id number] . 01 Gross description: . The specimen is received in formalin, labeled with two patient identifiers and cervix, uterus, left tube and ovary, and consists of a uterus with attached cervix and left adnexa. The uterine corpus measures 6.2 x 4.5 x 2.5 cm (49 g) and has a martinez-brown, partially roughened serosal surface. The attached cervix measures 2.4 x 2.0 x 0.9 cm and is attached by a smooth, white, glistening endocervix. There is a 0.6 cm, slit-like, patent os. The specimen is inked, bivalved to show a martinez, trabeculated endocervical canal with a 0.6 cm in greatest dimension unilocular, smooth-walled endocervical cyst filled with white mucoid material. The right parametrium is inked red, and the left parametrium is inked blue. The myometrium is red-martinez and measures up to 0.9 cm in thickness. There is a solitary 0.9 cm in greatest dimension, white, whorled, well-circumscribed nodule located in the mid posterior fundus. There is a 3.0 x 1.8 cm, triangular endometrial lining which is hemorrhagic, martinez, and averages 0.2 cm in thickness. In addition, there is a 1.8 x 0.8 cm thickened white area of endometrium located at the left cornu that occupies both the anterior and posterior endometrial waters. Further sectioning in this area shows this white full-thickness endometrium extending 0.7 cm into the underlying myometrium and occupies the upper one-third of the myometrium. The left ovary measures 2.5 x 1.4 x 1.1 cm and is surfaced by a smooth, white, glistening serosal surface. Sectioning of the ovary shows a white, fibrotic ovarian parenchyma with a 0.9 cm in greatest dimension, focally calcified corpus albicans. The accompanying fimbriated fallopian tube measures 4.1 cm in length by 0.5 cm in diameter and has a 1.4 x 0.4 x 0.4 cm inserted clear medical education coordinator which is inserted into the lumen. . [place] [employer]keman sections are submitted as follows: A1: Posterior cervix. A2: Anterior cervix. A3: Posterior full-thickness endomyometrium to include myometrial nodule. A4-A5: Posterior full-thickness endomyometrium to include white, thickened endometrial lining. A6-A7: Full-thickness endomyometrium, anterior to include thickened endometrial lining. A8: Ovary (following decalcification). A9: Fimbriated fallopian tube to include entire fimbriated end. (DL:[id number]) (DL:[id number]) . . A10-A11: Additional full thickness endomyometrium from posterior wall. A12-A13: Full thickness endomyometrium from anterior wall. A14-A15: Endometrium and upper half of myometrium from posterior wall from lower uterine segment to fundus respectively. A16-A17: Endometrium and upper half of myometrium from anterior wall from lower uterine segment to fundus respectively. (DL:[id number]) /[facility] 06/19/[address] [place] [address] . 01 Pathologist provided ICD-10: N85.00, C54.1 . 01 CPT . 614628 Specimen Comment: A courtesy copy of this report has been sent to [facility] Pathology Performed at: [address] [address], [place], [place] [id number] MD Terrell Olvera MD Phone: [phone]
[2025-06-08] MEDS: ACETAMINOPHEN IV 1,000 MG/100 ML VIAL 400 MG IV (07:11)
[2025-06-08] MEDS: FAMOTIDINE 20 MG/2 ML VIAL IV (07:11)
[2025-06-08] MEDS: LACTATED RINGERS 1,000 ML 42 ML IV (07:12)
[2025-06-08 07:13] LABS: Hematocrit 38.6 % (36-46); Hemoglobin 13.1 g/dL (12.0-16.0); Mean Corpuscular HGB Conc 33.9 % (30-36); Mean Corpuscular Hemoglobin 29.3 PG (26-34); Mean Corpuscular Volume 86.2 fL (80-100); Platelet Count 237 X10^3/uL (150-400)
--- NOTE | 2025-06-08 07:35 | PM.PREOP ---
Pre-operative Note Interval Note History & Physical reviewed/Exam performed by Physician: Yes Changes to H&P: No H&P completed within 30 days and has changed as indicated here:: see H&P from 06/05
--- NOTE | 2025-06-08 08:24 | SUR.OPER ---
Lithotomy on padded OR bed. [place] Pad Positioner under torso. Head on pillow, arms padded and tucked at sides. Legs secured in padded yellow fins stirrups.
--- NOTE | 2025-06-08 10:24 | P.OP_ITS ---
Operative Date/Time/Diagnoses Date of procedure: 06/08/25 Time of procedure: 08:00 Pre-op diagnosis: Endometrial intraepithelial neoplasia Post-op diagnosis: same Procedure & Clinicians Procedure: Robotic-assisted total laparoscopic hysterectomy Left salpingo-oophorectomy Lysis of adhesions Same procedure(s) as scheduled: Yes Indications: 80yo F with postmenopausal bleeding, found to have endometrial intraepithelial neoplasia with D&C, counseled for definitive management with the above procedures. Surgeon: Wendy Wiley Assisted?: No Anesthesia Type: General Operative Notes Findings: Normal appearing uterus, left fallopian tube, and left ovary. Right fallopian tube and ovary surgically absent. Normal appearing pelvic peritoneum. Omental adhesions were noted to the anterior abdominal wall at the umbilicus. Specimen(s): other (uterus, cervix, left fallopian tube and left ovary) Applied: catheter Estimated Blood Loss (mL): 10 Blood products transfused: none Procedure in detail: The risks, benefits, indications and alternatives of the procedure were reviewed with the patient and informed consent was obtained. The pt was taken to the operating room where general anesthesia was obtained without difficulty. The pt was then placed in the low lithotomy position using Chepe Stirrups and arms were tucked with padding. Sequential compression devices were placed bilaterally for VTE prophylaxis. She was then prepped and draped in the sterile fashion and a Moreno catheter was placed. She received 2g Ancef for surgical prophylaxis. A small V-care uterine manipulator was placed through the cervix into the uterus for uterine manipulation. Attention was then turned to the patient?s abdomen were an 8mm skin incision was made in the inferior aspect of the umbilicus after injecting 0.25% Marcaine. An 8mm trocar and sleeve were then carefully introduced into the peritoneal cavity under direct visualization at a 90-degree angle while tenting up the abdominal wall. Intra-peritoneal placement was confirmed under direct visualization with the laparoscope with entry pressure <5 mmHg. A pneumoperitoneum was obtained with several liters of CO2 gas, maximum pressure of 15 mmHg. Upon entry into the peritoneal cavity, structures immediately below the incision were inspected and found to be free of injury. A survey of the patient's abdomen and pelvis was notable for the above findings. An additional 8mm port was placed on the left lateral side of the abdomen, and a Powerseal device was then introduced into the abdominal cavity. The omental adhesions were then taken down with the Powerseal device. Approximately 15min was spent performing lysis of adhesions. Two additional 8mm port sites were then placed on the right lateral side of the abdomen. The [employer] surgical robot was then docked and instruments inserted under direct visualization. Control of the robot was then turned over to the console. The left fallopian tube and ovary was grasped, and the infundibulopelvic ligament was ligated and transected. The fallopian tube was then ligated and transected from the mesosalpinx. The round ligament was then clamped, cut, and ligated. The anterior broad ligament was then incised along the bladder reflection and the bladder was dissected off the lower uterine segment until endopelvic fascia was visualized. The uterine artery was then identified, skeletonized, and ligated on the left. The uterosacral ligament and cardinal ligament were transected on the left. Attention was then directed to the right side, where the same procedure was done to clamp, cut, and ligate the right side of the uterus. The right adnexa was surgically absent. The anterior colpotomy was then made using monopolar scissors and continued circumferentially inferior to the cervix using the colpotomy ring as a guide. The entire cervix, uterus, and left adnexa was then successfully amputated and delivered through the vagina. The 0 Stratafix suture was then introduced into the abdominal cavity, and the vaginal cuff was then closed robotically with the barbed suture in a running fashion. The suture needle was removed via the lateral port under direct visualization. The pelvis was then suctioned, and excellent hemostasis was noted. The surgical robot was then undocked, and the pneumoperitoneum was released. The ports were then removed, and the skin incisions were reapproximated using 4- 0 monocryl suture in a subcuticular fashion and covered with Dermabond. The vagina was inspected and noted to have some abrasions along the vaginal canal that were hemostatic, however there was a small tear in the vaginal mucosa on the posterior wall that was repaired with 2-0 vicryl with a [id number] suture. At the completion of the case the sponge and needle counts were correct x 2, and all instruments were confirmed to be removed from the vagina. The patient was taken to the PACU in stable condition. Complications: none Post-operative Condition: stable Disposition: PACU
[2025-06-08] MEDS: LACTATED RINGERS 1,000 ML 21 ML IV (11:26)
[2025-06-08] MEDS: KETOROLAC 30 MG/ML VIAL IV ×3 (11:28→23:07)
[2025-06-08] MEDS: ACETAMINOPHEN 325 MG TABLET 650 MG PO ×2 (12:27→18:00)
[2025-06-08 13:34] LABS: Estimated Glomerular Filt Rate > 60 mL/min (>60)
--- NOTE | 2025-06-08 17:06 | PC.NURSE ---
Addendum entered by Karen Colin RN 06/08/25 18:12: Pt up and OOB, ambulated twice around room. No pain reported, no dizziness, VSWNL. Pt tolerated well. Pt returned to bed; per MD orders, trial d/c of Moreno cathether (removed at 1745). Continue to monitor for post-removal void by ~2100. Plan of care continues. Original Note: Called MD Wiley re: pt hx of DM2 but no sliding scale insulin; MD Wiley stated preference to not use sliding scale and have patient restart their Metformin in AM. No new orders at this time.
[2025-06-09] MEDS: ACETAMINOPHEN 325 MG TABLET 650 MG PO (01:17)
[2025-06-09 08:01] VITALS: BP 125/56; PULSE 67
[2025-06-09 08:15] VITALS: BP 113/63; PULSE 68; RESP 18; TEMP 36.4; O2SAT 94
--- NOTE | 2025-06-09 09:20 | P.DS_ITS ---
History of Present Illness History of Present Illness Date Patient Seen: 06/09/25 Time Patient Seen: 09:20 Chief complaint: OPB Narrative: 80yo F with EIN admitted for RA-TLH/LSO. Her procedure was uncomplicated. Discharge Providers Provider Discharge Date: 06/09/25 Primary care physician: Annie Schroeder MD Discharge provider: Wendy Wiley DO Summary Hospital Course Discharge Diagnosis: Endometrial intraepithelial neoplasia Hospital Course: 80yo F with EIN admitted for RA-TLH/LSO. Her procedure was uncomplicated. By post-op day #1, she was ambulating, tolerating regular diet, voiding spontaneously, with minimal vaginal bleeding. Thus she was discharged to home on POD#1. Status at Discharge Cognitive/behavioral status at discharge: oriented Functional status at discharge: uses cane/walker Overall status at discharge: patient is progressing back to baseline Time Spent with Patient Time spent: Less than 30 minutes Exam Vital Signs (past 8 hours): - 06/09/25 08:01 06/09/25 08:15 Temperature 97.6 F Pulse Rate 67 68 Respiratory Rate 18 Blood Pressure 125/56 L 113/63 Pulse Oximetry 94 Oxygen Delivery Method Nasal Cannula Oxygen Flow Rate 0 Const General: cooperative, healthy appearing and No acute distress Resp Effort & Inspection: normal respiratory effort and able to speak in complete sentences GI Other: soft, appropriately tender Skin Other: 4 laparoscopic incisions clean/dry/intact with dermabond in place Neuro General: patient alert and patient awake Cognition: normal cognition Speech: speech normal Extrem General: normal to inspection Psych Affect: normal affect Attitude: cooperative Objective Labs 06/08/25 07:05 06/08/25 12:56 Labs: Laboratory Results - last 24 hr 06/08/25 06/08/25 06/08/25 10:53 12:56 16:55 Creatinine 0.70 Estimated GFR > 60 POC Whole Bld Glucose 211 H 213 H 06/08/25 06/09/25 19:57 07:31 Creatinine Estimated GFR POC Whole Bld Glucose 223 H 116 H D [facility] Medical History (Updated 06/05/25 @ 15:02 by Wendy Wiley DO) Endometrial intraepithelial neoplasia (EIN) Asthma Anesthesia complication Vertigo Anxiety History of PID Hyperlipidemia Hypertension Vestibular migraine Type 2 diabetes mellitus Surgical History History of hysteroscopy (03/30/25) History of tonsillectomy History of laparoscopy History of section History of cataract surgery History of carpal tunnel release of both wrists Social History household members: none Smoking Status: Never smoker alcohol intake: never Discharge Assessment & Plan Assessment and Plan Assessment: S/p robotic-assisted total laparoscopic hysterectomy with left salpingo- oophorectomy Plan of Treatment: Discharge to home with follow-up in the office as scheduled. Discharge Plan Discharge Plan Patient Disposition: Home Provider Discharge Comment: Take ibuprofen 600mg every 6hrs and acetaminophen 650mg every 6hrs as needed for pain. Use oxycodone 5mg every 4hrs as needed for severe pain. Avoid lifting greater than 20lbs for at least 4 weeks. Avoid placing anything in the vagina for 6 weeks. Discharge orders & Medications Discharge Orders: Discharge (Order); Ordered 06/09/25 Ordered By: Wendy Wiley Prescriptions: New oxycodone 5 mg Tablet 5 mg PO Q4HR PRN (Reason: Pain, Moderate (4-6)) Qty: 7 0RF Continued amlodipine [Norvasc] 5 MG tablet 5 mg PO BID Qty: 0 metformin [Glucophage XR] 500 MG tablet extended release 24 hr 1,000 mg PO BID Qty: 0 lisinopril 20 MG tablet 40 mg PO BID Qty: 0 atorvastatin 10 mg tablet 5 mg PO ONCE PM (DME) OneTouch Verio test strips Strip See Rx Instructions .ROUTE DAILY Qty: 10 Rx Instructions: As directed Follow up/Referrals: Wendy Wiley DO [Physician, POLICE ARTIST] Diet/Activity/Treatments Diet: Diet as Tolerated Activity: As tolerated. Skin/Wound/Dressing Care Skin care: You may shower normally. Report to your healthcare provider any signs of infection, such as:: chills, fever, increased pain, unusual drainage and unusual redness Dressing: The surgical glue on your incisions will peel off after 1 week. Visit Report/Discharge Packet Instructions: DI for Hysterectomy, DI for Laparoscopy, DI for Prescription Opioid Use Stand Alone Forms: Patient Portal/API Print Language: Yoruba Discharge Data Primary Care Provider: Annie Schroeder Attending Provider: Wendy Wiley VTE Deep Vein Thrombosis/Pulmonary Embolism Present on Admission: No IH PROFEE Charge Codes Discharge inpatient/observation: [id number]
--- NOTE | 2025-06-09 10:53 | PC.NURSE ---
Removed pt PIV, pt tolerated well. Pt urinated another 150mL, clear/yellow. Provided discharge education to pt and pt sister on diet, activity, medications, after care, symptoms worsening, and follow up. Pt stated all questions answered. All belongings with pt. No belongings in drawer safe or pharmacy. Pt escorted via WC by YANY Tidwell to POV to be taken home by sister.
== END 2025-06-09 10:56 | disposition home or self-care (01) ==
LOC: OR 06:26 → AC 06:34
PROVIDERS: Anesthesiology; PCP Family Medicine; Referring Provider Student in an Organized Health Care Education/Training Program; Visit Provider Student in an Organized Health Care Education/Training Program
PROC: 0UT94ZZ Resection of Uterus, Percutaneous Endoscopic Approach (ICD-10-PCS; CPT 58571; principal; 2025-06-08 07:45)
DX: C54.1 Malignant neoplasm of endometrium (principal); K66.0 Peritoneal adhesions (postprocedural) (postinfection)
CPT/HCPCS: 58571; S2900; 36415; 82565; 82962; 85027; J0131; J0689; J1100; J1171; J1885; J2405; J2704; J3010; J7120